=== PATIENT | male | born 1985 | race Hispanic/Latino ===

== ENCOUNTER 2022-12-01 08:57 | Inpatient (IN) | payer SELFPAY ==
--- NOTE | 2022-12-01 09:22 | ER ---
Nurse's Notes [facility] Name: Reid Gil Age: 37 yrs Sex: Male : 1985 Arrival Date: 12/01/2022 Time: 08:57 Bed 7 Private MD: Diagnosis: Diabetes mellitus due to underlying condition with hyperglycemia;Osteomyelitis, unspecified-Left great toe Presentation: 12/01 09:17 Chief complaint: Patient states: L great toe swollen, red, painful, and draining fluid ll1 for 1 week. No fever at home. Coronavirus screen: Vaccine status: Patient reports receiving the 2nd dose of the covid vaccine. Client denies travel out of the [place] in the last 14 days. At this time, the client does not indicate any symptoms associated with coronavirus-19. Ebola Screen: Patient denies travel to an Ebola-affected area in the 21 days before illness onset. Initial Sepsis Screen: Does the patient meet any 2 criteria? No. Patient's initial sepsis screen is negative. Does the patient have a suspected source of infection? Yes: Skin breakdown/wound. Risk Assessment: Do you want to hurt yourself or someone else? Patient reports no desire to harm self or others. Onset of symptoms was November 24, 2022. 09:17 Method Of Arrival: Wheelchair ll1 09:17 Acuity: JULIET 2 ll1 Triage Assessment: 09:19 General: Appears uncomfortable, ill, Behavior is calm, cooperative, appropriate for ll1 age. Pain: Complains of pain in L great toe Pain currently is 2 out of 10 on a pain scale. Quality of pain is described as aching. Derm: Wound noted L great toe foul odor. Musculoskeletal: Swelling present in L great toe Reports pain in L great toe. Historical: - Allergies: 09:17 No Known Allergies; ll1 - PMHx: 09:17 None; ll1 - PSHx: 09:17 None; ll1 - Immunization history:: Adult Immunizations up to date. - Social history:: Smoking status: Patient denies any tobacco usage or history of. Screenin:04 [facility] ED Fall Risk Assessment (Adult) History of falling in the last 3 months, db including since admission No falls in past 3 months (0 pts) Confusion or Disorientation No (0 pts) Intoxicated or Sedated No (0 pts) Impaired Gait No (0 pts) Mobility Assist Device Used No (0 pt) Altered Elimination No (0 pt) Score/Fall Risk Level 0 - 2 = Low Risk Oriented to surroundings, Maintained a safe environment. Abuse screen: Denies threats or abuse. Denies injuries from another. Nutritional screening: No deficits noted. Tuberculosis screening: No symptoms or risk factors identified. Assessment: 09:14 Reassessment: Patient appears in no apparent distress at this time. Patient and/or db family updated on plan of care and expected duration. Pain level reassessed. Patient is alert, oriented x 3, equal unlabored respirations, skin warm/dry/pink. LEFT BIG TOE WOUND WITH INFECTION AND SMELL. NOTED TOE IS BLACK AND YELLOW WITH OPEN WOUNDS AND SWELLING. General: Appears in no apparent distress. comfortable, Behavior is calm, cooperative. Pain: Complains of pain in left foot. Neuro: Level of Consciousness is awake, alert, obeys commands, Oriented to person, place, time, situation, Speech is normal. Respiratory: Airway is patent Respiratory effort is even, unlabored, Respiratory pattern is regular, symmetrical. Musculoskeletal: Swelling present in left foot. 11:20 Reassessment: right hand laceration with 3 sutures repaired in [place] 2 days ago. wound db to left big toe draining. 11:23 Reassessment: Report given to JANET Juarez. db 12:17 Reassessment: Patient appears in no apparent distress at this time. Patient and/or db family updated on plan of care and expected duration. Pain level reassessed. Patient is alert, oriented x 3, equal unlabored respirations, skin warm/dry/pink. Vital Signs: 09:17 BP 154 / 109; Pulse 120; Resp 18; Temp 97.9; Pulse Ox 100% ; Pain 2/10; ll1 09:44 Weight 94.35 kg; db 10:00 BP 135 / 82; Pulse 106; Resp 18; Pulse Ox 100% on R/A; db 11:00 BP 150 / 91; Pulse 101; Resp 18; Pulse Ox 100% on R/A; db 12:00 BP 148 / 91; Pulse 97; Resp 18; Pulse Ox 100% on R/A; db 09:17 Pain Scale: Adult ll1 Vitals: 11:00 Cardiac Rhythm Assessment Sinus tach. db ED Course: 09:03 Patient arrived in ED. im 09:05 [facility]C [facility] snw 09:05 Kiana Mccloud MD is Attending Physician. snw 09:05 Arm band placed on Patient placed in an exam room, on a stretcher. ll1 09:14 Roz Sheridan, RN is Primary Nurse. db 09:19 Triage completed. ll1 09:19 Rafita Boyd is Hospitalizing Provider. snw 09:27 EKG done, by ED staff, reviewed by Venus FOLEY. em1 09:38 Inserted saline lock: 20 gauge in left antecubital area, using aseptic technique. Blood db collected. 09:38 Second set of blood cultures drawn by me. db 09:55 Chest Single View XRAY In Process Unspecified. EDMS 09:55 Foot Left 3 View XRAY In Process Unspecified. EDMS 10:04 Patient has correct armband on for positive identification. Call light in reach. Side db rails up X 1. 12:00 Provided Education on: EDUCATED ON ADMISSION. db 12:00 No provider procedures requiring assistance completed. Patient admitted, IV remains in db place. Administered Medications: 09:45 Drug: NS 0.9% IV (30 ml/kg) 30 ml/kg Route: IV; Rate: bolus; Site: left antecubital; db 12:17 Follow up: IV Status: Infusion continued db 09:55 Drug: Insulin Regular Human IVP 5 units {Co-Signature: iw (Naty Lyle RN).} Route: db IVP; Site: left antecubital; 12:17 Follow up: Response: No adverse reaction db 10:00 Drug: vancoMYCIN IVPB 1.5 grams Route: IVPB; Rate: calculated rate; Site: left db antecubital; 12:15 Follow up: Response: No adverse reaction; IV Status: Infusion continued upon admission; db IV Intake: 2500ml Medication: 12:00 VIS not applicable for this client. db Point of Care Testing: Blood Glucose: 09:14 Blood Glucose: 338 mg/dL; db Ranges: Intake: 12:15 IV: 2500ml; Total: 2500ml. db Outcome: 09:21 Decision to Hospitalize by Provider. snw 12:00 Admitted to Med/surg accompanied by tech, via stretcher. db 12:00 Condition: stable 12:00 Instructed on the need for transfer. 12:19 Patient left the ED. db Signatures: Dispatcher [employer] EDVenus Arshad, ALAINA COLOR BUFFER-Donte Santiago em1 Cain Royal RN RN ll1 Roz Sheridan RN RN db Sivan Blankenship Irene RN iw
--- NOTE | 2022-12-01 09:22 | EDPHYS ---
Physician Documentation [facility] Name: Reid Gil Age: 37 yrs Sex: Male : 1985 Arrival Date: 12/01/2022 Time: 08:57 Bed 7 Private MD: ED Physician Kiana Mccloud HPI: 12/01 09:25 This 37 yrs old Male presents to ER via Wheelchair with complaints of Toe snw Injury - left big toe possible infection. 09:25 The patient presents with pain, swelling. Context: resulted from a chronic condition. snw Onset: The symptoms/episode began/occurred 1 year(s) ago, and became worse 1 week(s) ago. Historical: - Allergies: 09:17 No Known Allergies; ll1 - PMHx: 09:17 None; ll1 - PSHx: 09:17 None; ll1 - Immunization history:: Adult Immunizations up to date. - Social history:: Smoking status: Patient denies any tobacco usage or history of. ROS: 09:24 Constitutional: Negative for fever, chills, and weight loss, Eyes: Negative for injury, snw pain, redness, and discharge, ENT: Negative for injury, pain, and discharge, Neck: Negative for injury, pain, and swelling, Cardiovascular: Negative for chest pain, palpitations, and edema, Respiratory: Negative for shortness of breath, cough, wheezing, and pleuritic chest pain. 09:24 Back: Negative for injury and pain, : Negative for injury, bleeding, discharge, and swelling, Skin: Negative for injury, rash, and discoloration, Neuro: Negative for headache, weakness, numbness, tingling, and seizure, Psych: Negative for depression, anxiety, suicide ideation, homicidal ideation, and hallucinations. 09:24 Abdomen/GI: Positive for nausea. 09:24 MS/extremity: Positive for toe infection. Exam: 09:21 Constitutional: This is a well developed, well nourished patient who is awake, alert, snw and in no acute distress. Head/Face: Normocephalic, atraumatic. Eyes: Pupils equal round and reactive to light, extra-ocular motions intact. Lids and lashes normal. Conjunctiva and sclera are non-icteric and not injected. Cornea within normal limits. Periorbital areas with no swelling, redness, or edema. ENT: Nares patent. No nasal discharge, no septal abnormalities noted. Tympanic membranes are normal and external auditory canals are clear. Oropharynx with no redness, swelling, or masses, exudates, or evidence of obstruction, uvula midline. Mucous membranes moist. 09:21 Chest/axilla: Normal chest wall appearance and motion. Nontender with no deformity. No lesions are appreciated. 09:21 Respiratory: Lungs have equal breath sounds bilaterally, clear to auscultation and percussion. No rales, rhonchi or wheezes noted. No increased work of breathing, no retractions or nasal flaring. Abdomen/GI: Soft, non-tender, with normal bowel sounds. No distension or tympany. No guarding or rebound. No evidence of tenderness throughout. Back: No spinal tenderness. No costovertebral tenderness. Full range of motion. Neuro: Awake and alert, GCS 15, oriented to person, place, time, and situation. Cranial nerves II-XII grossly intact. Motor strength 5/5 in all extremities. Sensory grossly intact. Cerebellar exam normal. Normal gait. Psych: Awake, alert, with orientation to person, place and time. Behavior, mood, and affect are within normal limits. 09:21 Neck: acanthosis. 09:21 Cardiovascular: Rate: tachycardic. 09:21 Skin: Appearance: scarring and acanthosis, diabetic appearing, left great toe with ulceration, edema, peeling, thickening, plantar surface ulceration so deep it nearly shows bone. Vital Signs: 09:17 BP 154 / 109; Pulse 120; Resp 18; Temp 97.9; Pulse Ox 100% ; Pain 2/10; ll1 09:44 Weight 94.35 kg; db 10:00 BP 135 / 82; Pulse 106; Resp 18; Pulse Ox 100% on R/A; db 11:00 BP 150 / 91; Pulse 101; Resp 18; Pulse Ox 100% on R/A; db 12:00 BP 148 / 91; Pulse 97; Resp 18; Pulse Ox 100% on R/A; db 09:17 Pain Scale: Adult ll1 MDM: 09:07 Patient medically screened. snw 09:17 Differential diagnosis: contusion, laceration, diabetic foot. Data reviewed: vital snw signs, nurses notes, lab test result(s), radiologic studies. Consideration of Admission/Observation Patient was admitted/placed on observation. Management of patient was discussed with the following: Road Oiling Truck Driver: Dr. Wright. 12/01 09:16 Order name: Blood Culture Adult (2) snw 12/01 09:16 Order name: CBC with Diff; Complete Time: 10:13 snw 12/01 09:16 Order name: CMP; Complete Time: 10:13 snw 12/01 09:16 Order name: Lactate w/ 2H reflex if indic.; Complete Time: 10:13 snw 12/01 09:16 Order name: Protime (+inr); Complete Time: 10:13 snw 12/01 09:16 Order name: Ptt, Activated; Complete Time: 10:13 snw 12/01 09:16 Order name: Urinalysis w/ reflexes snw 12/01 09:16 Order name: Hemoglobin A1c snw 12/01 09:25 Order name: Glucose, Ancillary Testing; Complete Time: 09:28 EDMS 12/01 10:57 Order name: Creatine Phosphokinase EDPA 12/01 10:57 Order name: Magnesium EDPA 12/01 10:57 Order name: Phosphorus EDPA 12/01 10:57 Order name: T4 Free EDMS 12/01 10:57 Order name: Thyroid Stimulating Hormone EDMS 12/01 10:57 Order name: Urinalysis w/ reflexes EDMS 12/01 10:57 Order name: Basic Metabolic Panel EDPA 12/01 10:57 Order name: Basic Metabolic Panel EDMS 12/01 10:57 Order name: CBC with Automated Diff EDMS 12/01 10:57 Order name: CBC with Automated Diff EDMS 12/01 10:57 Order name: Lipid Profile EDMS 12/01 10:57 Order name: Lipid Profile EDMS 12/01 11:00 Order name: Hemoglobin A1c EDMS 12/01 11:01 Order name: Vancomycin Level Trough EDMS 12/01 11:38 Order name: Glucose, Ancillary Testing EDPA 12/01 09:16 Order name: Chest Single View XRAY; Complete Time: 10:13 snw 12/01 09:16 Order name: Foot Left 3 View XRAY; Complete Time: 10:13 snw 12/01 11:03 Order name: Foot Left Wo Cont EDMS 12/01 09:16 Order name: EKG; Complete Time: 09:16 snw 12/01 10:56 Order name: CONS Physician Consult EDPA 12/01 10:57 Order name: Dietitian Consult EDPA 12/01 10:59 Order name: NPO EDPA 12/01 09:16 Order name: Accucheck; Complete Time: 09:16 snw 12/01 09:16 Order name: Cardiac monitoring; Complete Time: 10:12 snw 12/01 09:16 Order name: EKG - Nurse/Tech; Complete Time: 09:27 snw 12/01 09:16 Order name: IV Saline Lock - Large Bore; Complete Time: 10:13 snw 12/01 09:16 Order name: Labs collected and sent; Complete Time: 10:13 snw 12/01 09:16 Order name: O2 Per Protocol; Complete Time: 10:13 snw 12/01 09:16 Order name: O2 Sat Monitoring; Complete Time: 10:13 snw 12/01 09:16 Order name: Vital Signs; Complete Time: 10:13 snw 12/01 09:28 Order name: NPO; Complete Time: 10:13 snw EC:26 Rate is 117 beats/min. Rhythm is regular. QRS [place]ase is Normal. QRS interval is normal. snw Clinical impression: Sinus tachycardia. Administered Medications: 09:45 Drug: NS 0.9% IV (30 ml/kg) 30 ml/kg Route: IV; Rate: bolus; Site: left antecubital; db 12:17 Follow up: IV Status: Infusion continued db 09:55 Drug: Insulin Regular Human IVP 5 units {Co-Signature: iw (Naty Lyle RN).} Route: db IVP; Site: left antecubital; 12:17 Follow up: Response: No adverse reaction db 10:00 Drug: vancoMYCIN IVPB 1.5 grams Route: IVPB; Rate: calculated rate; Site: left db antecubital; 12:15 Follow up: Response: No adverse reaction; IV Status: Infusion continued upon admission; db IV Intake: 2500ml Point of Care Testing: Blood Glucose: 09:14 Blood Glucose: 338 mg/dL; db Ranges: Critical Glucose Levels:Adult <50 mg/dl or >400 mg/dl <40 mg/dl or >180 mg/dl Disposition Summary: 12/01/22 09:21 Hospitalization Ordered Hospitalization Status: Inpatient Admission snw Provider: Rafita Boyd snw Location: Telemetry/MedSurg (Inpatient) snw Condition: Stable snw Problem: new snw Symptoms: are unchanged snw Bed/Room Type: Standard snw Room Assignment: 408(12/01/22 11:10) ds4 Diagnosis - Diabetes mellitus due to underlying condition with hyperglycemia snw - Osteomyelitis, unspecified - Left great toe snw Forms: - Medication Reconciliation Form snw - SBAR form snw Signatures: Dispatcher [employer] EDMS Venus Brandon, TUMBLE TAILSTOCK TURRET LATHE OPERATOR-C TUMBLE TAILSTOCK TURRET LATHE OPERATOR-Csnw Sina Rubin ds4 Cain Royal RN RN ll1 Roz Sheridan RN RN db Naty Lyle RN iw Corrections: (The following items were deleted from the chart) 11:10 09:21 snw ds4
[2022-12-01 09:49] LABS: Hematocrit 38.5 % (39.6-49.0); Lymphocytes % 11.3 % (15.3-44.8); MCV 80.4 fL (80-100); MPV 7.3 fL (7.6-11.3); RBC Red Blood Cell Count 4.79 M/uL (4.33-5.43)
[2022-12-01] MEDS ORDERED: VANCOMYCIN 1 GM/VIAL ONE (09:58)
[2022-12-01] MEDS ORDERED: VANCOMYCIN 500 MG/VIAL ONE (09:58)
[2022-12-01] MEDS ORDERED: INSULIN -REGULAR HUMAN 50 UNIT/0.5 ML ML ONE (10:00)
[2022-12-01] MEDS ORDERED: NA CHLORIDE 0.9% 500 ML ONE (10:00)
[2022-12-01] MEDS ORDERED: NA CHLORIDE 0.9% 3,000 ML ONE (10:00)
[2022-12-01 10:02] LABS: Protime INR 1.24
[2022-12-01 10:06] LABS: Albumin 2.8 g/dL (3.4-5.0); Bilirubin Total 0.6 mg/dL (0.2-1.0); Potassium 3.8 mEq/L (3.5-5.1); Protein, Total 9.1 g/dL (6.4-8.2)
--- NOTE | 2022-12-01 10:07 | RAD REPORT ---
EXAM DESCRIPTION: Meghan Single View12/01/2022 9:54 am CLINICAL HISTORY: wound infection COMPARISON: No comparisons TECHNIQUE: Portable AP view of the chest. FINDINGS: The lungs are clear. No pneumothorax or effusion. The cardiomediastinal contours are unre markable. IMPRESSION: No acute cardiopulmonary process.
--- NOTE | 2022-12-01 10:08 | RAD REPORT ---
EXAM DESCRIPTION: RAD - Foot Left 3 View - 12/01/2022 9:54 am CLINICAL HISTORY: SWELLING COMPARISON: No comparisons TECHNIQUE: Left foot, 3 views. FINDINGS: Comminuted fracture at the head of the first digit proximal phalanx, with intra-articular extension. Osseous lucencies and destructive changes along the distal lateral aspect of the distal ph alanx head. Overlying soft tissue swelling with a plantar skin defect. No deeper soft tissue gas. No other suspicious osseous lesions. Scattered mild degenerative changes along the midfoot. Small calcan eal spur. IMPRESSION: Comminuted fracture at the head of the first digit proximal phalanx with intra-articular extension with associated osseous lucencies along the lateral aspect of the phalanx. Findings raise concern for underlying osteomyelitis in the appropriate clinical setting.
[2022-12-01] MEDS ORDERED: LABETALOL 20 MG/4ML SYRINGE IV PRN (10:45)
[2022-12-01] MEDS ORDERED: ACETAMINOPHEN 325 MG TABLET PO PRN (10:47)
[2022-12-01] MEDS ORDERED: ONDANSETRON 4 MG/2 ML VIAL IV PRN (10:54)
[2022-12-01] MEDS: NA CHLORIDE 0.9% 1,000 ML IV SCH ×2 (11:00→20:45)
[2022-12-01] MEDS ORDERED: VANCOMYCIN 1 GM in NA CHLORIDE 0.9% 250 ML IVPB SCH (11:00)
--- NOTE | 2022-12-01 11:02 | P.HP ---
Certification for Inpatient Patient admitted to: Inpatient With expected LOS: >2 Midnights Patient will require the following post-hospital care: None Practitioner: I am a practitioner with admitting privileges, knowledge of patient current condition, hospital course, and medical plan of care. Services: Services provided to patient in accordance with Admission requirements found in Title 42 Section 412.3 of the Code of Federal Regulations Patient History Date of Service: 12/01/22 History of Present Illness: Patient is a 37-year-old male with no known past medical history who presents with complaint of left great toe ulcer\infection. Patient reported that he has been having ulcer in the left great toe for the past 1 year and patient has been self treating his wound. Patient reported that he started experiencing swelling\redness\drainage from the left great toe in the last 1 week. Patient reported associated signs and symptoms of chills and left lower extremity numbness. Patient denies any other signs and symptoms. Symptoms are aggravated or relieved by nothing. Patient decided to present to the hospital for medical evaluation. Of note, patient also reports right hand laceration with 3 stitches. Allergies No Known Allergies Allergy (Unverified 12/01/22 10:46) - Past Medical/Surgical History Past Medical History: Reviewed- Non-Contributory Past Surgical History: Patient denies surgical history - Family History Father -: Diabetes - Social History Smoking Status: Never smoker Alcohol use: No CD- Drugs: No Caffeine use: No Place of Residence: Home Review of Systems General: Chills Eyes: Unremarkable ENT: Unremarkable Respiratory: Unremarkable Cardiovascular: Unremarkable Gastrointestinal: Unremarkable Genitourinary: Unremarkable Musculoskeletal: Other (Left great toe swelling) Integumentary: Other (Left great toe redness) Neurological: Numbness Lymphatics: Unremarkable Physical Examination - Physical Exam General: Alert, In no apparent distress, Oriented x3, Cooperative HEENT: Atraumatic, PERRLA, Mucous membr. moist/pink, EOMI, Sclerae nonicteric Neck: Supple, 2+ carotid pulse no bruit, No LAD, Without JVD or thyroid abnormality Respiratory: Clear to auscultation bilaterally, Normal air movement Cardiovascular: No edema, Regular rate/rhythm, Normal S1 S2 Capillary refill: <2 Seconds Gastrointestinal: Normal bowel sounds, Soft and benign, No tenderness Musculoskeletal: No clubbing, Swelling, Erythema, Tenderness Integumentary: No rashes, Skin breakdown, Erythema, Diabetic ulcer Neurological: Normal speech, Normal tone, Normal affect Lymphatics: No axilla or inguinal lymphadenopathy - Studies Laboratory Data (last 24 hrs) 12/01/22 09:38: PT 13.6 H, INR 1.24, APTT 34.6 12/01/22 09:38: Sodium 130 L, Potassium 3.8, BUN 11, Creatinine 0.92, Glucose 368 H, Total Bilirubin 0.6, AST 14 L, ALT 24, Alkaline Phosphatase 128 H 12/01/22 09:38: WBC 8.90, Hgb 13.0 L, Hct 38.5 L, Plt Count 392 Assessment and Plan - Plan -- Left great toe diabetic ulcer. MRI left foot pending to rule out osteomyelitis. Blood and wound cultures pending. Continue antibiotics. Surgeon and wound care consults initiated.. Will await further recommendations. --New onset DM2 with hyperglycemia. Hemoglobin A1c is 11.7. BS monitoring with sliding scale insulin. Diabetic education consult initiated. Continue supportive care. --Hyponatremia.--130 Likely secondary to hyperglycemia. We will keep blood sugar controlled. We will continue to monitor sodium levels. --Anemia of chronic disease. H&H stable. We will continue to monitor hemoglobin and transfuse if less than 7.0. -- Elevated blood pressure without diagnosis of hypertension. We will manage BP with labetalol as needed --DVT prophylaxis with SCDs. Discharge Plan: Home Plan to discharge in: Greater than 2 days - Advance Directives Does patient have a Living Will: No Does patient have a Durable POA for Healthcare: No - Code Status/Comfort Care Code Status Assessed: Yes Physician Review: Patient Assessed, Agree with Above Assessment and Plan Critical Care: No
[2022-12-01] MEDS: INSULIN -REGULAR HUMAN 50 UNIT/0.5 ML ML SQ SCH ×3 (11:30→20:36)
[2022-12-01 12:08] LABS: Magnesium 2.2 mg/dL (1.6-2.4); Phosphorus 2.6 mg/dL (2.5-4.9); Thyroid Stimulating Hormone 0.426 uIU/mL (0.358-3.740)
[2022-12-01] MEDS ORDERED: VANCOMYCIN 1 GM in NA CHLORIDE 0.9% 250 ML IVPB ONE (13:30)
--- NOTE | 2022-12-01 14:15 | RAD REPORT ---
EXAM DESCRIPTION: MRI - Foot Left Wo Cont - 12/01/2022 2:07 pm CLINICAL HISTORY: R O Osteomyelitis COMPARISON: No comparisons FINDINGS: Low T1 and abnormal T2 signal present within the great toe distal and proximal phalanx. An ulceration is present at that distal great toe. Soft tissue swelling is present. No discrete abscess . No fractures seen . IMPRESSION: Osteomyelitis involving the great toe distal and proximal phalanx. No abscess .
--- NOTE | 2022-12-01 14:48 | P.CNS ---
Date of Consult: 12/01/22 PC: I was asked to see this 37-year-old male in regards to ulceration, tissue abscess, and chronic ulceration of his right great toe. HPC: Patient had an ulcer on the bottom of his toe for the last few months. Has been working on it by himself. Unfortunately the abscess got infected and spread to the top of the toe. He presents now with purulence and foul order coming from it. PSHx: Negative PMHx: Patient did not know but appears that he is diabetic. He is being evaluated by the medical services. Social Hx: No known allergies Sys R: No cough, wheeze, shortness of breath. States he is otherwise in pretty good health. Did have an injury to his right hand. O/E: Awake alert vital signs are stable HEENT: NAD Chest: Chest movement equal bilaterally Abd: Soft [place]: Has ulceration measuring approximately 2.5 cm on the distal portion of the left great toe. Also has a corresponding ulcer over the second space on the dorsal surface of the left great toe. He has obvious fungus infection of his nail. There is a large blood blister expanding under the skin. The patient has a strong pulse, appears to be monophasic on his left foot. The skin has relatively good nutrition, but there is patchy hair loss up to about the level of the ankle. Data: Foot x-ray has been done, awaiting MRI Impression: Patient has a choice of whether or not he will require IV antibiotics for 6 to 8 weeks or undergo an amputation. We were get a MRI today and be able to give the patient some better information for his decisions. Plan: Continue to treat patient with antibiotics. We will discuss with him again tomorrow his options.
[2022-12-01 15:26] VITALS: BMI 31.6
[2022-12-01 15:57] LABS: Specific Gravity 1.026 (1.005-1.030); Urine Bacteria None Seen /HPF (<20); Urine Bilirubin NEGATIVE (Negative); Urine Blood Trace (Negative); Urine Clarity Clear (Clear); Urine Color Light-Yellow (Yellow); Urine Glucose 4+ (Over) (Negative); Urine Mucus Slight /HPF (None Seen); Urine Protein TRACE (Negative); Urine RBC <5 /HPF (None Seen); Urine Urobilinogen Normal (Normal); Urine pH 5.5 (5.0-7.0)
--- NOTE | 2022-12-01 17:02 | EKG ---
Test Date: 2022-12-01 Test Time: 09:23:58 Career Development Coordinator: CONCEPCIÓN MEASUREMENT RESULTS: Intervals: Rate: 117 OR: 122 QRSD: 96 QT: 356 QTc: 496 [place]: P: 82 OR: 122 QRS: 28 T: 64 INTERPRETIVE STATEMENTS: Sinus tachycardia Otherwise normal ECG No previous ECG available for comparison Electronically Signed On 12-01-22 17:01:53 CDT by Carlos Burns
[2022-12-01] MEDS: CEFEPIME 1 GM in NA CHLORIDE 0.9% 100 ML IV SCH (20:34)
[2022-12-01] MEDS: HYDROCODONE/APAP 5/325 MG TAB PO PRN (20:35)
[2022-12-01] MEDS ORDERED: NA CHLORIDE 0.9% 100 ML ONE (20:41)
[2022-12-01] MEDS ORDERED: HEPARIN 5000 UNIT/ML 1 ML VIAL SQ SCH (21:00)
[2022-12-02] MEDS: NA CHLORIDE 0.9% 1,000 ML IV SCH ×2 (00:27→17:22)
[2022-12-02] MEDS: VANCOMYCIN 1.75 GM in NA CHLORIDE 0.9% 500 ML IVPB SCH ×2 (02:27→17:22)
[2022-12-02 06:11] LABS: Absolute Lymphocytes (CBC) 1.4 K/uL (0.7-4.9); Hematocrit 30.6 % (39.6-49.0); Lymphocytes % 21.7 % (15.3-44.8); MPV 7.3 fL (7.6-11.3); RBC Red Blood Cell Count 3.82 M/uL (4.33-5.43)
[2022-12-02 06:43] LABS: Magnesium 1.9 mg/dL (1.6-2.4); Phosphorus 2.8 mg/dL (2.5-4.9); Potassium 3.4 mEq/L (3.5-5.1)
[2022-12-02] MEDS: INSULIN -REGULAR HUMAN 50 UNIT/0.5 ML ML SQ SCH ×4 (07:30→23:00)
[2022-12-02] MEDS: ASPIRIN 81 MG CHEWABLE TABLET PO SCH (09:00)
[2022-12-02] MEDS: CEFEPIME 1 GM in NA CHLORIDE 0.9% 100 ML IV SCH ×2 (09:22→19:56)
[2022-12-02] MEDS: KCL 20 MEQ/100 mL IVPB 20 MEQ/100 ML BAG IV SCH ×2 (10:00→10:05)
[2022-12-02] MEDS ORDERED: BUPIVACAINE 0.5% PF 10 ML VIAL ONE (13:05)
[2022-12-02] MEDS ORDERED: NA CHLORIDE 0.9% 1,000 ML ONE (13:11)
[2022-12-02] MEDS ORDERED: MIDAZOLAM HCL 2 MG/2 ML INJ ONE (13:24)
[2022-12-02] MEDS ORDERED: propofoL 200 MG/20 ML VIAL IV ONE (13:24)
[2022-12-02] MEDS ORDERED: LIDOCAINE 2% MPF 5 ML VIAL ONE (13:25)
[2022-12-02] MEDS ORDERED: FAMOTIDINE 20 MG/2 ML VIAL IV ONE (13:28)
--- NOTE | 2022-12-02 13:53 | P.PN ---
Date of Service: 12/02/22 Once again discussed with the patient the operative procedure. We will take him for an amputation of his great toe. We will also have a look at his right hand where he had a laceration to clean that out while he is asleep. The wrist procedure once again were emphasized. The possibility of bleeding, infection, need for further surgeries and procedures were explained. Nonhealing further infection and need for antibiotics were explained. He understands and wants us to proceed. His sister is here with him. We will also look at his hand so we can get a better idea of what is going on but again that also may require other surgeries in the future.
[2022-12-02] MEDS ORDERED: FENTANYL CITR 100 MCG/2 ML ONE (14:31)
[2022-12-02] MEDS ORDERED: ONDANSETRON 4 MG/2 ML VIAL ONE (14:40)
--- NOTE | 2022-12-02 16:27 | P.OP ---
Preoperative diagnosis: Gangrene of the left great toe with osteomyelitis, wound right hand Postoperative diagnosis: The same Primary procedure: Amputation of left great toe Secondary procedure: Exploration of wound to the right hand Operative Technique: The patient brought the operating room and placed supine on the table. After the induction of adequate general endotracheal anesthesia, anterior the area of the right hand was scrubbed with a chlorhexidine solution and separately draped on an armboard, the left foot was prepped with a Betadine solution, separately draped. Attention was turned towards the right hand. We removed 3 sutures had been placed in the emergency room at another facility.. The wound was now gently opened to see if there is any underlying tendon injury. We did not see any. There was no evidence of infection or foreign body. The wound was now approximated again with 2 interrupted sutures of nylon and a dressing was applied. Attention was now turned towards our dirty portion of the procedure. At a racquet incision was made around the left great toe. This brought down through the skin and subcutaneous tissue. Having encountered the bone, we were now able to excise completely down to the actual bone itself. We could see there was an absolute the fragmented fracture of the distal phalanx disease, there was infection into the bone itself with pus coming out of it, there was adequate bleeding coming from the skin edges of our wound but that we will see how it heals over the next few weeks. The bone was now addressed at the metacarpal phalangeal joint. The ligaments were divided. The distal portion of the toe was now sent for histopathology. Periosteal elevator was used to elevate the periosteum and cleared the surrounding tissue to slightly advance the skin edges that we had. The cartilage on the bone was removed using a rongeur and a rasp. The tendons were treated by applying gentle traction and cut them so they will traction well back. With the sesamoid bones were relatively well is consol idated inside the tissue of the foot and did not appear to have any surface pressure areas that need to be dissected out we did not pursue them in view of the fact that we will be going into good clean viable tissue creating and the potential for spread of infection into these and exploited areas particularly allowing access to the plantar surface of the foot we did not pursue them. The skin edges were now approximated with nylon sutures the wound edges were checked for hemostasis. At this point some iodoform gauze was placed on it as well as a Kerlix roll. The patient was placed into a walking boot. At the end of the procedure he was in a stable condition was sent to the recovery room. Needle sponge instrument count were correct. No drains were placed. Complications: None Transferred to: Recovery Room Condition: Good
[2022-12-02] MEDS ORDERED: HYDROMORPHONE HCL 1 MG/ML INJ ONE (16:30)
--- NOTE | 2022-12-02 16:35 | P.PN ---
Subjective Date of Service: 12/02/22 Patient seen and examined. Status post left great toe amputation by Dr. Wright today. Physical Examination - Vital Signs Temperature: 97.1 F Blood Pressure: 114/71 Pulse: 88 Respirations: 16 Pulse Ox (%): 100 Assessment And Plan - Plan Physical Exam General: Alert, In no apparent distress, Oriented x3, Cooperative Respiratory: Clear to auscultation bilaterally, Normal air movement Cardiovascular: No edema, Regular rate/rhythm, Normal S1 S2 Gastrointestinal: Normal bowel sounds, Soft and benign, No tenderness Musculoskeletal: No clubbing, Swelling, Erythema, Tenderness Integumentary: No rashes, Skin breakdown, Erythema, Diabetic ulcer-left great toe Neurological: No focal motor deficit. Diagnosis Left great toe diabetic ulcer with cellulitis Left great toe distal and proximal phalanx osteomyelitis Diabetes mellitus type 2 with hyperglycemia Essential hypertension Left great toe diabetic ulcer/cellulitis/Left great toe distal and proximal phalanx osteomyelitis. MRI left foot shows osteomyelitis of left great toe distal and proximal phalanx. Patient seen and evaluated by surgery Dr. Wright who recommended amputation versus prolonged IV antibiotic therapy. Patient opted for amputation. Status post toe amputation today. Continue antibiotics for now. Local wound care. Dr. Wright is following. Follow cultures. Newly diagnosed DM2 with hyperglycemia. Hemoglobin A1c is 11.7. Aggressive blood sugar control. Start Novolin 70/30 Continue insulin sliding scale Diabetic education. Start lisinopril for renoprotective effect Anemia of chronic disease. Continue to monitor CBC Discharge Plan: Home
[2022-12-02] MEDS ORDERED: GLUCAGON 1 MG/VIAL IM PRN (16:51)
[2022-12-02] MEDS ORDERED: D10W 250 ML BAG IV PRN (16:51)
[2022-12-02] MEDS: INSULIN 70/30 100 UNITS/ML SQ SCH (18:32)
[2022-12-02] MEDS: MORPHINE 4 MG/ML SYR IV PRN (19:55)
[2022-12-02] MEDS ORDERED: KCL 20 MEQ/100 mL IVPB 20 MEQ/100 ML BAG IV SCH (20:00)
[2022-12-02] MEDS: HYDROCODONE/APAP 5/325 MG TAB PO PRN (22:59)
[2022-12-03 01:10] LABS: Absolute Lymphocytes (CBC) 1.7 K/uL (0.7-4.9); Hematocrit 29.6 % (39.6-49.0); Lymphocytes % 26.9 % (15.3-44.8); MPV 6.9 fL (7.6-11.3)
[2022-12-03 01:25] LABS: Phosphorus 3.5 mg/dL (2.5-4.9); Potassium 3.6 mEq/L (3.5-5.1)
[2022-12-03] MEDS: VANCOMYCIN 1.75 GM in NA CHLORIDE 0.9% 500 ML IVPB SCH (02:05)
[2022-12-03] MEDS: NA CHLORIDE 0.9% 1,000 ML IV SCH ×2 (02:09→12:59)
[2022-12-03] MEDS ORDERED: POTASSIUM 25 MEQ EFFERV TAB PO ONE (06:00)
[2022-12-03] MEDS: HYDROCODONE/APAP 5/325 MG TAB PO PRN ×2 (08:29→16:03)
[2022-12-03] MEDS: CEFEPIME 1 GM in NA CHLORIDE 0.9% 100 ML IV SCH (08:30)
[2022-12-03] MEDS: ASPIRIN 81 MG CHEWABLE TABLET PO SCH (08:30)
[2022-12-03] MEDS: INSULIN -REGULAR HUMAN 50 UNIT/0.5 ML ML SQ SCH ×3 (08:30→15:44)
[2022-12-03] MEDS: INSULIN 70/30 100 UNITS/ML SQ SCH ×2 (08:31→16:03)
[2022-12-03 10:02] VITALS: O2SAT 100
[2022-12-03] MEDS: MORPHINE 4 MG/ML SYR IV PRN (12:58)
--- NOTE | 2022-12-03 13:32 | CON ---
History Of Present Illness: I was consulted for evaluation of antibiotic management on this patient who had osteomyelitis and had amputation of left big toe, came in with ulceration. Has recently been diagnosed with diabetes mellitus, with hemoglobin A1c of 11. Patient denies any headache, nausea, v omiting, chest pain, abdominal pain, constipation, or diarrhea. No allergies and no other medical co nditions. Social History: Nonsmoker and nondrinker. Family History: Noncontributory. Medications: See MARs for other medications. Allergies: NO KNOWN DRUG ALLERGIES. Review of Systems: A 10-point review was performed. Physical Examination: General: This is a 37-year-old male, lying in bed, not in any acute cardiopulmonary distress. Vital Signs: Temperature 96, pulse 73, respirations 16, blood pressure 137/60. Extremities: Examination of foot shows surgical wrap. Laboratory Data: WBC 6.4, hemoglobin 10, platelets are 317. Chemistry shows BUN of 8, creatinine 0. 8, glucose of 217. Micro data; cultures are negative to date. Foot MRI done on 12/01 shows osteomye litis involving the great toe distal to the proximal phalanx with no abscess. Assessment And Plan: Status post amputation of left big toe in a recently diagnosed diabetic patient . Continue antibiotic, we can switch to oral, apply Betadine to the wound site daily. Monitor blood sugars. Keep fasting sugars below 200. We will recommend doxycycline 100 mg p.o. b.i.d. for 7 days . Patient can also take Augmentin 500 mg p.o. q.8 hours for 7 days. Keep leg elevated, when possibl e. Follow up with the surgical team on wound care. We will follow the patient as needed. NF/MODL Voice ID: [id number] Report ID: [id number]
[2022-12-03] MEDS ORDERED: VANCOMYCIN 2 GM in NA CHLORIDE 0.9% 500 ML IVPB SCH (14:00)
--- NOTE | 2022-12-03 14:19 | RAD REPORT ---
EXAM DESCRIPTION: US - Lower Extremity Arterial Bilat - 12/03/2022 1:20 pm CLINICAL HISTORY: Diabetic foot ulcer COMPARISON: None FINDINGS: The common femoral, superficial femoral and popliteal arteries bilaterally demonstrate mul tiphasic waveforms The posterior tibial and dorsalis pedis arteries demonstrate multiphasic waveforms bilaterally. IMPRESSION: No flow limiting arterial stenosis within either lower extremity.
[2022-12-03 16:21] VITALS: BP 138/89; TEMP 98.2
--- NOTE | 2022-12-03 17:30 | P.DS ---
Admission Date: 12/01/22 Discharge Date: 12/03/22 Disposition: ROUTINE DISCHARGE Discharge Condition: FAIR Brief History of Present Illness: Patient is a 37-year-old male with no known past medical history who presents with complaint of left great toe ulcer. Patient reported that he has been having ulcer in the left great toe for the past 1 year and patient has been self treating his wound. Patient reported that he started experiencing swelling, redness and drainage from the left great toe in the last 1 week. Patient reported associated signs and symptoms of chills and left lower extremity numbness. Of note, patient also reports right hand laceration with 3 stitches. His initial blood work showed elevated blood sugar. Diabetic foot also suspected. Patient was admitted for further management. Hospital Course: Diagnosis Left great toe diabetic ulcer with cellulitis Left great toe distal and proximal phalanx osteomyelitis Diabetes mellitus type 2 with hyperglycemia Essential hypertension Patient admitted to the medical floor and the following medical problems addressed: Left great toe diabetic ulcer/cellulitis/Left great toe distal and proximal phalanx osteomyelitis. MRI left foot shows osteomyelitis of left great toe distal and proximal phalanx. Patient seen and evaluated by surgery Dr. Wright who recommended amputation versus prolonged IV antibiotic therapy. Patient opted for amputation. Status post toe amputation. Surgery reports margins of amputation free of infection/gangrene and recommended oral antibiotics. Infectious disease consulted. Patient was seen by Dr. Anderson who recommended oral Augmentin and doxycycline. Dr. Wright will follow patient in the wound care clinic for wound care. Blood cultures: No growth Arterial Doppler of bilateral lower extremities did not show any significant flow-limiting stenosis. Patient deemed stable for discharge Newly diagnosed DM2 with hyperglycemia. Hemoglobin A1c is 11.7. Patient started on Novolin 70/30. He was also on insulin sliding scale Diabetic education done. Patient discharged with Novolin 70/30 and metformin Anemia of chronic disease. Stable Vital Signs/Physical Exam: Temp Pulse Resp BP Pulse Ox 98.2 F 96 H 16 138/89 96 12/03/22 16:00 12/03/22 16:00 12/03/22 16:03 12/03/22 16:00 12/03/22 16:03 General: Alert, In no apparent distress, Oriented x3 HEENT: Mucous membr. moist/pink Neck: JVD not distended Respiratory: Clear to auscultation bilaterally, Normal air movement Cardiovascular: Regular rate/rhythm, Normal S1 S2 Gastrointestinal: Soft and benign, Non-distended Musculoskeletal: Other (Left great toe amputated) Integumentary: No rashes, No cyanosis Neurological: Normal strength at 5/5 x4 extr Laboratory Data at Discharge: WBC 6.40 thou/uL (4.3-10.9) 12/03/22 00:57 Hgb 10.1 g/dL (13.6-17.9) L 12/03/22 00:57 Hct 29.6 % (39.6-49.0) L 12/03/22 00:57 Plt Count 317 thou/uL (152-406) 12/03/22 00:57 PT 13.6 SECONDS (9.5-12.5) H 12/01/22 09:38 INR 1.24 12/01/22 09:38 APTT 34.6 SECONDS (24.3-36.9) 12/01/22 09:38 Sodium 135 mEq/L (136-145) L 12/03/22 00:57 Potassium 3.6 mEq/L (3.5-5.1) 12/03/22 00:57 BUN 8 mg/dL (7-18) 12/03/22 00:57 Creatinine 0.83 mg/dL (0.70-1.30) 12/03/22 00:57 Glucose 220 mg/dL (74-106) H 12/03/22 00:57 Phosphorus 3.5 mg/dL (2.5-4.9) 12/03/22 00:57 Magnesium 2.0 mg/dL (1.6-2.4) 12/03/22 00:57 Total Bilirubin 0.6 mg/dL (0.2-1.0) 12/01/22 09:38 AST 14 U/L (15-37) L 12/01/22 09:38 ALT 24 U/L (16-61) 12/01/22 09:38 Alkaline Phosphatase 128 U/L (45-117) H 12/01/22 09:38 Triglycerides 150 mg/dL (<150) 12/02/22 05:18 Cholesterol 149 mg/dL (<200) 12/02/22 05:18 HDL Cholesterol 22 mg/dL (40-60) L 12/02/22 05:18 Cholesterol/HDL Ratio 6.77 12/02/22 05:18 Home Medications: Amox/Clavulanate [Augmentin 875-125 Tab] 1 each PO BID #14 tab 12/03/22 Aspirin Chewable [Aspirin Chewable*] 81 mg PO DAILY #30 tab.chew 12/03/22 Doxycycline Hyclate 100 mg PO BID #14 cap 12/03/22 Insulin 70/30 NPH/Reg Human [Novolin 70/30*] 10 unit SQ BIDAC #15 ml 12/03/22 Metformin HCl 500 mg PO BID #60 tab 12/03/22 New Medications: Aspirin Chewable [Aspirin Chewable*] 81 mg PO DAILY #30 tab.chew Amox/Clavulanate [Augmentin 875-125 Tab] 1 each PO BID #14 tab Doxycycline Hyclate 100 mg PO BID #14 cap Metformin HCl 500 mg PO BID #60 tab Insulin 70/30 NPH/Reg Human [Novolin 70/30*] 10 unit SQ BIDAC #15 ml Diet: ADA Activity: Ad juan Followup: Joe Wright MD [ACTIVE - CAN ADMIT] - 1 Week (Tuesday at the wound care center.) NONE,NONE [Primary Care Provider] - 1-2 Weeks Time spent managing pt's care (in minutes): 35
== END 2022-12-03 19:08 | disposition home or self-care (01) | DRG 617 ==
LOC: ER 08:57 → 4TH 09:21
PROVIDERS: ATTEND Internal Medicine
PROC: 0Y6Q0Z3 Detachment at Left 1st Toe, Low, Open Approach (ICD-10-PCS; principal; 2022-12-02 13:15)
DX: E11.69 Type 2 diabetes mellitus with other specified complication (principal); E87.1 Hypo-osmolality and hyponatremia; M86.8X7 Other osteomyelitis, ankle and foot; E11.628 Type 2 diabetes mellitus with other skin complications; E11.65 Type 2 diabetes mellitus with hyperglycemia; E11.621 Type 2 diabetes mellitus with foot ulcer; L97.529 Non-pressure chronic ulcer of other part of left foot with unspecified severity; D63.8 Anemia in other chronic diseases classified elsewhere; L03.032 Cellulitis of left toe; S61.411A Laceration without foreign body of right hand, initial encounter; R03.0 Elevated blood-pressure reading, without diagnosis of hypertension; Z79.4 Long term (current) use of insulin; Z79.84 Long term (current) use of oral hypoglycemic drugs
CPT/HCPCS: 36415; 71045; 80048; 80053; 80061; 80202; 81001; 82550; 82947; 83036; 83605; 83735; 84100; 84439; 84443; 85025; 85610; 85730; 87040; 88305; 88311; 93005; 93925; 96365; 96366; 96375; 99285; J0692; J1170; J1815; J2001; J2250; J2405; J2704; J3010; J3480; J7030; J7040; J7050

== ENCOUNTER 2023-12-26 16:21 | Emergency (ER) | payer SELFPAY ==
[2023-12-26] MEDS ORDERED: ACETAMINOPHEN 500 MG TAB ONE (16:44)
[2023-12-26] MEDS ORDERED: KETOROLAC 30 MG/ML INJ ONE (16:44)
[2023-12-26] MEDS ORDERED: methocarbamoL 500 MG TAB ONE (16:44)
--- NOTE | 2023-12-26 17:29 | ER ---
Nurse's Notes 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 Coronavirus screen: At this time, the client does not indicate any symptoms associated with coronavirus-19. Ebola Screen: No symptoms or risks identified at this time. Initial Sepsis Screen: Does the patient meet any 2 criteria? No. Patient's initial sepsis screen is negative. Does the patient have a suspected source of infection? No. Patient's initial sepsis screen is negative. Risk Assessment: Do you want to hurt yourself or someone else? Patient reports no desire to harm self or others. Onset of symptoms was December 26, 2023. 16:37 Method Of Arrival: Ambulatory hb 16:37 Acuity: JULIET 3 hb Triage Assessment: 16:38 General: Appears in no apparent distress. Behavior is calm, cooperative. Pain: Pain hb currently is 5 out of 10 on a pain scale. Neuro: Level of Consciousness is awake, alert, obeys commands, Oriented to person, place, time, situation. Cardiovascular: Patient's skin is warm and dry. Respiratory: Respiratory effort is even, unlabored, Respiratory pattern is regular, symmetrical. Historical: - Allergies: 16:37 No Known Allergies; hb - PMHx: 16:37 DM; hb - Immunization history:: Adult Immunizations up to date. - Infectious Disease History:: Denies. - Social history:: Smoking status: Patient denies any tobacco usage or history of. Screenin:00 [facility] ED Fall Risk Assessment (Adult) History of falling in the last 3 months, hb including since admission No falls in past 3 months (0 pts) Confusion or Disorientation No (0 pts) Intoxicated or Sedated No (0 pts) Impaired Gait No (0 pts) Mobility Assist Device Used No (0 pt) Altered Elimination No (0 pt) Score/Fall Risk Level 0 - 2 = Low Risk Oriented to surroundings, Maintained a safe environment, Educated pt \T\ family on fall prevention, incl call for assistance when getting out of bed. Abuse screen: Denies threats or abuse. Denies injuries from another. Nutritional screening: No deficits noted. Tuberculosis screening: No symptoms or risk factors identified. Assessment: 17:00 General: See triage assessment. hb Vital Signs: 16:38 BP 138 / 82; Pulse 105; Resp 16; Temp 97.9(TE); Pulse Ox 99% on R/A; Weight 108.86 kg; hb Height 5 ft. 8 in. ; Pain 5/10; 16:38 Body Mass Index 36.49 (108.86 kg, 172.72 cm) hb 16:38 Pain Scale: Adult hb ED Course: 16:27 Patient arrived in ED. ec2 16:27 Jim Greenberg MD is Attending Physician. ec2 16:37 Triage completed. hb 16:38 Arm band placed on. hb 17:14 Humerus Left XRAY In Process Unspecified. EDMS 17:28 Librado Hanson MD is Referral Physician. ec2 17:50 Patient has correct armband on for positive identification. Provided Education on: hb medication, follow up. 17:50 No provider procedures requiring assistance completed. Patient did not have IV access hb during this emergency room visit. Administered Medications: 16:54 Drug: Methocarbamol PO 500 mg PO once Route: PO; hb 17:50 Follow up: Response: No adverse reaction hb 16:54 Drug: Ketorolac IM 30 mg IM once Route: IM; Site: right deltoid; hb 17:50 Follow up: Response: No adverse reaction hb 16:54 Drug: Acetaminophen PO 1000 mg PO once Route: PO; hb 17:50 Follow up: Response: No adverse reaction hb Medication: 17:00 VIS not applicable for this client. hb Outcome: 17:29 Discharge ordered by . ec2 17:50 Discharged to home ambulatory, hb 17:50 Condition: stable 17:50 Discharge instructions given to patient, Instructed on discharge instructions, follow up and referral plans. medication usage, Demonstrated understanding of instructions, follow-up care, medications, Prescriptions given X 1, 17:50 Patient left the ED. 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 hb
--- NOTE | 2023-12-26 17:29 | EDPHYS ---
Physician Documentation [facility] Name: Reid Gil Age: 38 yrs Sex: Male : 1985 Arrival Date: 12/26/2023 Time: 16:21 Bed Treatment Private MD: ED Physician Jim Greenberg HPI: 12/25 16:45 This 38 yrs old Male presents to ER via Ambulatory with complaints of left arm ec2 problem. 16:45 Patient arrives today for evaluation of a left bicep injury. States that he was lifting ec2 up a heavy object and subsequently felt a tear in his left upper extremity. Denies any falls injuries or other concerns. States he is having pain with certain movements of the left upper extremity.. Historical: - Allergies: 16:37 No Known Allergies; hb - PMHx: 16:37 DM; hb - Immunization history:: Adult Immunizations up to date. - Infectious Disease History:: Denies. - Social history:: Smoking status: Patient denies any tobacco usage or history of. ROS: 16:45 Constitutional: as per hpi ec2 Exam: 16:45 Constitutional: GEN: NAD Head: atraumatic Eyes: EOMI Ears: External ears are ec2 normal. CV: regular rate LUNGS: no respiratory distress ABD: non-distended SKIN: no evidence of rashes MSK: Left upper extremity with obvious bicep injury, left mid humerus swelling noted consistent with bicep tear. Pain with flexion and supination of the left upper extremity. Intact distal neurovascular status. NEURO: moves all extremities equally Vital Signs: 16:38 BP 138 / 82; Pulse 105; Resp 16; Temp 97.9(TE); Pulse Ox 99% on R/A; Weight 108.86 kg; hb Height 5 ft. 8 in. ; Pain 5/10; 16:38 Body Mass Index 36.49 (108.86 kg, 172.72 cm) hb 16:38 Pain Scale: Adult hb MDM: 16:45 Data reviewed: vital signs. ED course: Patient arrives today for left upper extremity ec2 injury. Examination consistent with bicep tear. Will obtain radiograph to evaluate for avulsion fracture. Differential includes bicep tear, fracture, doubt other processes such as DVT or cellulitis. . 16:47 Patient medically screened. ec2 17:28 ED course: Humerus x-ray independently reviewed and interpreted by me, show no avulsion ec2 fracture. Presentation consistent with bicep tear. Will discharge home and have the patient follow-up outpatient with orthopedic surgery.. 12/25 16:39 Order name: Humerus Left XRAY; Complete Time: 17:34 ec2 12/25 16:40 Order name: Sllai; Complete Time: 16:54 ec2 Administered Medications: 16:54 Drug: Methocarbamol PO 500 mg PO once Route: PO; hb 17:50 Follow up: Response: No adverse reaction hb 16:54 Drug: Ketorolac IM 30 mg IM once Route: IM; Site: right deltoid; hb 17:50 Follow up: Response: No adverse reaction hb 16:54 Drug: Acetaminophen PO 1000 mg PO once Route: PO; hb 17:50 Follow up: Response: No adverse reaction hb Disposition Summary: 12/26/23 17:29 Discharge Ordered Notes: Location: Home ec2 Condition: Stable ec2 Diagnosis - Strain of muscle, fascia and tendon of long head of biceps, left arm ec2 - Bicep Tendon Rupture ec2 Followup: ec2 - With: Librado Hanson MD - When: - Reason: Recheck today's complaints Discharge Instructions: - Discharge Summary Sheet ec2 - Distal Biceps Tendon Tear ec2 Forms: - Medication Reconciliation Form ec2 - Antibiotic Education ec2 - Prescription Opioid Use ec2 - Patient Portal Instructions ec2 - Leadership Thank You Letter ec2 Prescriptions: - acetaminophen-codeine 300-30 mg Oral tablet - take 1 tablet ORAL route every 4 hours as needed for pain; 20 tablet; Refills: ec2 0, Product Selection Permitted Signatures: Dispatcher [employer] Claudia Matamoros RN RN hb Corral, Edwin, MD MD ec2
--- NOTE | 2023-12-26 17:32 | RAD REPORT ---
EXAM DESCRIPTION: RAD - Humerus Left - 12/26/2023 5:12 pm CLINICAL HISTORY: Left arm pain FINDINGS: No fracture is seen 3 millimeter radiopaque foreign body medial soft tissues distal humerus
[2023-12-26 22:07] VITALS: BP 138/82; TEMP 97.9; O2SAT 99
== END 2023-12-26 17:50 | disposition home or self-care (01) ==
LOC: ER 16:21
DX: S46.112A Strain of muscle, fascia and tendon of long head of biceps, left arm, initial encounter (principal)
CPT/HCPCS: 96372; 99284